=== PATIENT | female | born 1965 | race Caucasian/White ===

== ENCOUNTER → 2020-01-18 | Outpatient (CLI) | payer OTHER ==
[~2020-01-18] MED LIST: BENADRYL25 MG PO; PHENERGAN 25 MG25 M1 PO; PREDNISONE50 MG PO; ZOCOR
== END ==
LOC: M.LAB 09:40
PROVIDERS: ATTEND Internal Medicine Gastroenterology
DX: Z01.812 Encounter for preprocedural laboratory examination (principal); Z11.59 Encounter for screening for other viral diseases; K21.9 Gastro-esophageal reflux disease without esophagitis

== ENCOUNTER 2020-07-08 15:03 | Emergency (ER) | payer OTHER ==
[~2020-07-08] VITALS: Ht 167.6 cm; Wt 68.0 kg
[2020-07-08 15:43] LABS: ABSOLUTE EOSINOPHILS 0.1 thou/uL (0.0-0.7); ABSOLUTE LYMPHOCYTES 2.7 thou/uL (0.8-5.3); ABSOLUTE MONOCYTES 0.7 thou/uL (0.0-1.2); ABSOLUTE NEUTROPHILS 5.6 thou/uL (1.6-8.1); BASOPHILS 0.1 %; HEMATOCRIT 40.7 % (37.0-47.0); LYMPHOCYTES 29.6 %; MCH 28.6 pg (26.0-34.0); MCHC 34.4 g/dL (28.0-37.0); MCV 83.1 fL (80.0-100.0); MONOCYTES 7.8 %; MPV 7.8 fl. (7.2-11.1); NUCLEATED RBCS 0 /100WBC; PLATELET COUNT* 263 thou/uL (150-400); POLYS 61.5 %; RDW-CV 13.2 % (10.5-14.5); WBC 9.1 thou/uL (4.0-11.0)
[2020-07-08 15:49] LABS: ANION GAP 7 mmol/L (7-16); BUN 11 mg/dL (7-18); CALCIUM 9.2 mg/dL (8.5-10.1); CHLORIDE 107 mmol/L (98-107); CO2 28 mmol/L (21-32); CREATININE 0.9 mg/dL (0.6-1.3); GLUCOSE 119 mg/dL (70-99); POTASSIUM 3.8 mmol/L (3.5-5.1); SODIUM 142 mmol/L (136-145)
[2020-07-08 15:52] LABS: APTT 24.6 Seconds (25.0-31.3); PROTIME 10.4 Seconds (9.20-11.50)
[2020-07-08 16:05] LABS: ALKALINE PHOSPHATASE 77 U/L (46-116); LIPASE 302 U/L (73-393); MAGNESIUM 2.4 mg/dL (1.8-2.4); NT-PRO BRAIN NAT PEPTIDE 63 pg/mL (<300); SGOT 13 U/L (15-37); SGPT 21 U/L (30-65); TOTAL BILIRUBIN 0.5 mg/dL (<0.1-1.0); TOTAL PROTEIN 7.5 g/dL (6.4-8.2)
[2020-07-08 16:06] LABS: CK-MB MASS < 0.5 ng/mL (<0.5-3.6)
[2020-07-08] MEDS ORDERED: IBUPROFEN 800800 M1 PO (16:49)
[2020-07-08] MEDS ORDERED: ZANAFLEX4 MG PO (16:49)
--- NOTE | 2020-07-08 17:01 | EKG ---
[place] [address] ELECTROCARDIOGRAM REPORT Name: TONEYSALOMÓN Room: [facility]#: [id number] Admission: 07/08/20 Attend Phys: Discharge: Date of : 65 Date of Service: 07/08/201511 Report #: [id number] THIS REPORT FOR: //name// [facility] ED Test Date: 2020-07-08 Test Time: 15:12:20 Pat Name: SALOMÓN ZIEGLER Department: Room: Gender: F Protection Consultant: KATHERINE : 1965 Requested By: Trace Harris Order Number: [id number] MD: Jacob Ferrell Measurements Intervals [place] Rate: 68 P: 58 [place]: 147 QRS: 71 QRSD: 87 T: 50 QT: 399 QTc: 425 Interpretive Statements Sinus rhythm Compared to ECG 06/04/2011 11:49:47 no change Electronically Signed On 07-08-2020 17:01:26 [employer] by Jacob Ferrell [email or web address] <ELECTRONICALLY SIGNED> By: Jacob Ferrell MD, [facility] 07/08/201700 11 11 Jacob Ferrell MD, FACC /EPI
[2020-07-08 17:07] VITALS: BP 126/84
== END 2020-07-08 17:08 | disposition home or self-care (01) ==
LOC: M.ERS 15:03
PROVIDERS: Family Medicine
DX: R07.89 Other chest pain (principal); E78.00 Pure hypercholesterolemia, unspecified; Z90.710 Acquired absence of both cervix and uterus